=== PATIENT | female | born 1965 | race Caucasian/White ===

== ENCOUNTER 2023-12-30 17:03 | Emergency (ER) | payer BC, OTHER ==
[~2023-12-30] VITALS: Ht 137.2 cm; Wt 99.1 kg
[2023-12-30] MEDS: OxyCODONE HCL/ACETAMINOPHEN 5-325 MG TABLET PO ONE (20:56)
[2023-12-30 22:28] VITALS: TEMP 99
[2023-12-30 22:40] VITALS: BP 143/85; PULSE 79; RESP 16
[2023-12-30] MEDS ORDERED: IBUP-1492 PO (23:59)
[2023-12-30] MEDS ORDERED: PERCT PO (23:59)
[2023-12-30] MEDS: IBUPROFEN 600 MG TABLET PO ONE (23:59)
[2023-12-30] MEDS ORDERED: METH-659 PO (23:59)
[2023-12-31] MEDS: METHOCARBAMOL 500 MG TABLET PO ONE
== END 2023-12-31 00:22 | disposition home or self-care (01) ==
LOC: EMS 17:05
DX: S60.211A Contusion of right wrist, initial encounter (principal); S50.01XA Contusion of right elbow, initial encounter; S40.011A Contusion of right shoulder, initial encounter; E11.9 Type 2 diabetes mellitus without complications; E78.00 Pure hypercholesterolemia, unspecified; Z98.890 Other specified postprocedural states; V89.2XXA Person injured in unspecified motor-vehicle accident, traffic, initial encounter; Y93.89 Activity, other specified; Y92.211 Elementary school as the place of occurrence of the external cause
CPT/HCPCS: 70450; 71250; 72125; 99284